=== PATIENT | male | born 1980 ===

== ENCOUNTER 2017-06-05 10:41 | Emergency (ER) | payer OTHER ==
[2017-06-05 11:15] VITALS: BP 116/78; PULSE 98; RESP 16; TEMP 97.9; O2SAT 97
--- NOTE | 2017-06-05 11:22 | C.PDOC ---
History Of Present Illness 37 y/o male presents to ED for evaluation of bumps on penis for 5 days. Patient states bump is painful during sexual intercourse Patient denies dysuria, fever, penile discharge, itchiness or any other complaints at this time. Time Seen by Provider: 06/05/17 10:54 Chief Complaint (Nursing): Male Genitourinary History Per: Patient History/Exam Limitations: no limitations Onset/Duration Of Symptoms: Days Current Symptoms Are (Timing): Still Present Past Medical History Reviewed: Historical Data, Nursing Documentation, Vital Signs Vital Signs: Last Vital Signs Temp 97.9 F 06/05/17 10:45 Pulse 98 H 06/05/17 10:45 Resp 16 06/05/17 10:45 BP 116/78 06/05/17 10:45 Pulse Ox 97 06/05/17 11:22 Family History: States: No Known Family Hx - Social History Hx Alcohol Use: No Hx Substance Use: No Review Of Systems Except As Marked, All Systems Reviewed And Found Negative. Constitutional: Negative for: Fever, Chills Genitourinary: Negative for: Dysuria Skin: Negative for: Rash Physical Exam - Physical Exam Additional Physical Exam Comments: Constitutional: No acute distress. Head: Normocephalic. Atraumatic. Eyes: PERRL. ENT: Moist mucous membranes. Neck: Supple. Cardiovascular: Regular rate. Radial pulse 2+ bilaterally. Chest: No tenderness. Respiratory: Clear to auscultation bilaterally. GI: Soft. Nontender. Nondistended. Back: No CVA tenderness. Musculoskeletal: No tenderness or swelling of extremities. Male : Uncircumcised. (-)inguinal adenopathy. (-)testicular tenderness or swelling. (+) Non tender light patches on foreskin and glands with surrounding erythema. Skin: No rash. Neurologic: Alert, no focal deficit. Patient denied sexual activity with other partners Patient is not concerned for STDS ED Course And Treatment O2 Sat by Pulse Oximetry: 97 (RA) Pulse Ox Interpretation: Normal Disposition - Disposition Disposition: HOME/ ROUTINE Disposition Time: 11:20 Condition: STABLE Prescriptions: Clotrimazole 1% Cream [Lotrimin 1%] 1 appl TOP BID #1 tube Instructions: [facility] (ED) Forms: [employer] ([place]ayan) - Clinical Impression Clinical Impression: Candidiasis of penis - PA / [employer] / Resident Statement MD/DO has examined the patient and agrees with the treatment plan. - Scribe Statement The provider has reviewed the documentation as recorded by the Stu Mendez All medical record entries made by the Stu were at my direction and personally dictated by me. I have reviewed the chart and agree that the record accurately reflects my personal performance of the history, physical exam, medical decision making, and the department course for this patient. I have also personally directed, reviewed, and agree with the discharge instructions and disposition.
== END 2017-06-05 11:32 | disposition home or self-care (01) ==
LOC: C.ER 10:41
DX: B37.89 Other sites of candidiasis (principal)